=== PATIENT | male | born 1960 | race African-American/Black ===

== ENCOUNTER 2021-08-11 22:34 | Inpatient (IN) | payer MEDICAID, OTHER ==
[~2021-08-11] VITALS: Ht 177.8 cm; Wt 81.2 kg
[2021-08-12] MEDS ORDERED: NITROGLYCERIN OINT 1GM/INCH UDPKT TD ONE (01:15)
[2021-08-12] MEDS ORDERED: ASPIRIN 81MG TABLET PO ONE (01:15)
[2021-08-12 01:41] LABS: HEMATOCRIT. 37.4 % (42.0-52.0); HEMOGLOBIN. 11.8 g/dL (14.0-18.0); MEAN CORPUSCULAR VOLUME 82.5 fL (80.0-94.0); PLATELET 170 x1000/uL (130-400); RED BLOOD CELL COUNT 4.53 mill/uL (4.7-6.1); RED CELL DISTRIBUTION WIDTH 12.9 % (11.6-14.6)
[2021-08-12 01:51] LABS: CHLORIDE 108 mEq/L (98-107); PROTHROMBIN TIME 10.8 sec (9.6-11.0)
[2021-08-12 03:40] LABS: PLATELET ESTIMATE NORMAL
[2021-08-12] MEDS ORDERED: DOCUSATE SODIUM 100MG CAPSULE PO PRN (10:45)
[2021-08-12] MEDS ORDERED: ACETAMINOPHEN 325MG TABLET PO PRN (10:45)
[2021-08-12] MEDS ORDERED: ONDANSETRON HCL 4MG/2ML INJ IV PRN (10:45)
[2021-08-12] MEDS ORDERED: MAGNESIUM/ALUMINUM HYDROXIDE/SIMETHICONE 30ML UDC PO PRN (10:45)
[2021-08-12] MEDS ORDERED: HYDROCODONE/ACETAMINOPHEN 5/325MG TABLET PO PRN (10:45)
[2021-08-12] MEDS ORDERED: DEXTROSE 50% WATER 50ML SYRINGE IV PRN ×2 (10:45)
[2021-08-12] MEDS ORDERED: IPRATROPIUM/ALBUTEROL 0.5-3(2.5)MG/3ML NEB HHN PRN (10:45)
[2021-08-12] MEDS ORDERED: CLONIDINE 0.1MG TABLET PO PRN (10:45)
[2021-08-12] MEDS: OMEPRAZOLE 20MG CAPSULE EXTENDED RELEASE PO SCH (11:00)
[2021-08-12] MEDS: ENOXAPARIN 40MG/0.4ML SYR SUBCUT SCH (11:09)
[2021-08-12] MEDS: BLOOD SUGAR DIAGNOSTIC STRIP TEST SCH ×3 (11:30→21:00)
[2021-08-12] MEDS: INSULIN LISPRO 100 UNITS/ML SUBCUT SCH ×3 (11:42→21:39)
[2021-08-12 18:27] VITALS: BP 129/73
[2021-08-12] MEDS ORDERED: GLIP5TAB12 MT (18:44)
[2021-08-12] MEDS ORDERED: ATOR20TA65 MT (18:44)
[2021-08-12] MEDS ORDERED: METF-416 MT (18:44)
[2021-08-12] MEDS ORDERED: LISI20TA31 MT (18:44)
[2021-08-12 18:54] LABS: CLARITY URINE CLEAR (CLEAR); COLOR URINE YELLOW (YELLOW); KETONES URINE NEGATIVE (NEGATIVE); LEUKOCYTE ESTERASE URINE NEGATIVE (NEGATIVE); NITRITE URINE NEGATIVE (NEGATIVE); OCCULT BLOOD URINE NEGATIVE (NEGATIVE); PH URINE 7.5 (4.5-8.0); PROTEIN URINE NEGATIVE (NEGATIVE); SPECIFIC GRAVITY URINE 1.018 (1.005-1.030)
[2021-08-12 19:30] LABS: *BARBITURATES SCREEN URINE NEGATIVE (NEGATIVE)
[2021-08-12 19:31] LABS: *AMPHETAMINES SCREEN URINE NEGATIVE (NEGATIVE); *BENZODIAZEPINES SCREEN URINE NEGATIVE (NEGATIVE); CANNABINOID URINE SCREEN NEGATIVE (NEGATIVE); METHADONE URINE SCREEN NEGATIVE (NEGATIVE); OPIATES URINE SCREEN NEGATIVE (NEGATIVE); PHENCYCLIDINE URINE SCREEN NEGATIVE (NEGATIVE)
[2021-08-12 19:32] LABS: *COCAINE SCREEN URINE NEGATIVE (NEGATIVE)
[2021-08-12 20:00] VITALS: BP 118/71
[2021-08-13] VITALS: BP 125/68
[2021-08-13 04:00] VITALS: BP 101/48
[2021-08-13] MEDS: BLOOD SUGAR DIAGNOSTIC STRIP TEST SCH ×3 (06:40→16:40)
[2021-08-13] MEDS: INSULIN LISPRO 100 UNITS/ML SUBCUT SCH ×3 (07:10→16:56)
[2021-08-13 07:53] LABS: HEMATOCRIT. 39.9 % (42.0-52.0); MEAN CORPUSCULAR HEMOGLOBIN 26.7 pg (28.0-32.0); MEAN CORPUSCULAR VOLUME 81.7 fL (80.0-94.0); PLATELET 194 x1000/uL (130-400); RED BLOOD CELL COUNT 4.88 mill/uL (4.7-6.1); RED CELL DISTRIBUTION WIDTH 12.8 % (11.6-14.6)
[2021-08-13 08:00] VITALS: BP 101/47
[2021-08-13 08:04] LABS: CHLORIDE 106 mEq/L (98-107)
[2021-08-13 08:12] LABS: LDL CHOLESTEROL 37 mg/dL (5-100); PHOSPHORUS 3.8 mg/dL (2.5-4.9)
[2021-08-13 08:13] LABS: HDL CHOLESTEROL 53 mg/dL (40-59)
[2021-08-13 08:17] LABS: T4 FREE 0.98 ng/dL (0.76-1.46)
[2021-08-13] MEDS: ENOXAPARIN 40MG/0.4ML SYR SUBCUT SCH (08:59)
[2021-08-13] MEDS: OMEPRAZOLE 20MG CAPSULE EXTENDED RELEASE PO SCH (09:00)
[2021-08-13 12:00] VITALS: BP 124/66
[2021-08-13] MEDS ORDERED: REGADENOSON 0.4 MG/5 ML IV ONE (12:15)
[2021-08-13 14:52] VITALS: BP 124/66
[2021-08-13 16:00] VITALS: BP 116/72
[2021-08-13 16:06] LABS: PLATELET ESTIMATE NORMAL
[2021-08-13] MEDS ORDERED: FAMOTIDINE 20MG TABLET PO SCH (21:00)
== END 2021-08-13 21:00 | disposition home or self-care (01) | DRG 203 ==
LOC: ER 22:34 → MICUSO 08-12 03:48 → EDBEDREQ 08-12 03:52 → EDBEDREQTM 08-12 03:52 → 7EST 08-12 16:55
PROVIDERS: ADMIT Internal Medicine; ATTEND Internal Medicine
DX: M94.0 Chondrocostal junction syndrome [Tietze] (principal); E11.9 Type 2 diabetes mellitus without complications; I10 Essential (primary) hypertension; J45.909 Unspecified asthma, uncomplicated; Z82.49 Family history of ischemic heart disease and other diseases of the circulatory system; Z83.3 Family history of diabetes mellitus; Z91.19 Patient's noncompliance with other medical treatment and regimen
CPT/HCPCS: 36415; 71045; 80048; 80053; 80061; 80076; 80305; 81003; 82962; 83036; 83735; 83880; 84100; 84439; 84443; 84484; 85025; 93005; 93306; 93970; 97161; 99285; J1650; J1815

== ENCOUNTER 2023-02-07 23:23 | Emergency (ER) | payer MEDICAID, OTHER ==
[~2023-02-07] VITALS: Ht 177.8 cm; Wt 84.8 kg
[~2023-02-07 23:23] MED LIST: ATOR20TA65 MT; GLIP5TAB12 MT; LISI20TA31 MT; METF-416 MT
[2023-02-08] MEDS ORDERED: KETOROLAC 60MG/2ML VIAL IM ONE (03:45)
[2023-02-08 03:57] VITALS: BP 130/66
== END 2023-02-08 04:00 | disposition home or self-care (01) ==
LOC: ER 23:23
DX: M25.511 Pain in right shoulder (principal); J45.909 Unspecified asthma, uncomplicated; E11.9 Type 2 diabetes mellitus without complications
CPT/HCPCS: 99281

== ENCOUNTER 2023-04-23 07:12 | Emergency (ER) | payer MEDICARE, MEDICAID ==
[~2023-04-23] VITALS: Ht 172.7 cm; Wt 110.0 kg
[2023-04-23 07:15] VITALS: TEMP 98; O2SAT 99
[2023-04-23] MEDS ORDERED: IBUPROFEN 800MG TABLET PO ONE (09:00)
[2023-04-23] MEDS ORDERED: IBUPROFEN 400MG TABLET PO NR (09:33)
[2023-04-23] MEDS ORDERED: IBUP-2029 MT (11:36)
[2023-04-23 12:33] VITALS: BP 132/77; PULSE 70; RESP 16
== END 2023-04-23 12:34 | disposition home or self-care (01) ==
LOC: ER 07:12
DX: M25.512 Pain in left shoulder (principal); M25.511 Pain in right shoulder; R51.9 Headache, unspecified; E11.9 Type 2 diabetes mellitus without complications; J45.909 Unspecified asthma, uncomplicated; Z98.890 Other specified postprocedural states
CPT/HCPCS: 73030; 99284